=== PATIENT | female | born 1975 | race Caucasian/White ===

== ENCOUNTER 2020-09-24 21:37 | Emergency (ER) | payer MEDICAID, OTHER ==
[~2020-09-24] VITALS: Ht 167.6 cm; Wt 64.9 kg
[~2020-09-24 21:37] MED LIST: birth control pills
[2020-09-24 21:46] VITALS: BP_SYST 142
--- NOTE | 2020-09-24 22:00 | NUR ---
Patient to ER bed 4 to gown for evaluation. Side rails up. Report given to Gustabo WAGNER.
--- NOTE | 2020-09-24 22:15 | NUR ---
ER at bedside examining patient.
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
--- NOTE | 2020-09-24 22:34 | NUR ---
law enforcement at bedside
--- NOTE | 2020-09-24 22:36 | NUR ---
report number [id number]
[2020-09-24] MEDS ORDERED: AMOXICILLIN/CLAVULANATE POTASSIUM 875 MG TABLET PO ONE (22:45)
[2020-09-24] MEDS ORDERED: DIPH-TET-PERTUS Vaccine 0.5 ML VIAL (ADACEL) I.M. ONE (22:45)
[2020-09-24] MEDS ORDERED: LIDOCAINE 1% 10 MG/ML, 20 ML MDV INJ ONE (22:45)
--- NOTE | 2020-09-24 22:52 | NUR ---
Patient transported to radiology via wheelchair, accompanied by tech.
--- NOTE | 2020-09-24 23:45 | NUR ---
doctor banks at bedside performing suture repair on left side of lip.
[2020-09-25] MEDS ORDERED: IBUP-1970 PO (00:47)
[2020-09-25 00:52] VITALS: BP_SYST 140
--- NOTE | 2020-09-25 00:53 | NUR ---
Patient given written and verbal discharge instructions and verbalizes understanding. ER MD discussed with patient the results and treatment provided. Patient in stable condition. ID arm band removed. Rx of ibuprofen given. Patient educated on pain management and to follow up with PMD. Pain Scale 2/10. Opportunity for questions provided and answered. Medication side effect fact sheet provided.
== END 2020-09-25 00:53 | disposition home or self-care (01) ==
LOC: SED 21:37
DX: S01.511A Laceration without foreign body of lip, initial encounter (principal); Z79.899 Other long term (current) drug therapy; Y04.0XXA Assault by unarmed brawl or fight, initial encounter; Y93.89 Activity, other specified; Y92.89 Other specified places as the place of occurrence of the external cause; Y99.8 Other external cause status
CPT/HCPCS: 70486-TC; 90715; 99284

== ENCOUNTER 2023-07-09 19:21 | Emergency (ER) | payer SELFPAY ==
[~2023-07-09] VITALS: Ht 167.6 cm; Wt 70.3 kg
[~2023-07-09 19:21] MED LIST changes: +IBUP-1970 PO
[2023-07-09 19:44] VITALS: BP_SYST 151; PULSE 84; RESP 22; TEMP 98.6; O2SAT 97
[2023-07-09] MEDS ORDERED: CLIN-142 PO (20:47)
[2023-07-09] MEDS ORDERED: HYDR-3917 PO (20:47)
[2023-07-09] MEDS ORDERED: IBUP-1969 PO (20:47)
== END 2023-07-09 21:03 | disposition home or self-care (01) ==
LOC: SED 19:21
DX: K04.7 Periapical abscess without sinus (principal); Z79.899 Other long term (current) drug therapy
CPT/HCPCS: 99283

== ENCOUNTER 2023-10-04 15:39 | Emergency (ER) | payer BC ==
[~2023-10-04] VITALS: Ht 167.6 cm; Wt 59.0 kg
[~2023-10-04 15:39] MED LIST changes: +CLIN-142 PO; +HYDR-3917 PO; +IBUP-1969 PO
[2023-10-04 15:59] VITALS: BP_SYST 122; PULSE 112; RESP 18; TEMP 98.3; O2SAT 98
[2023-10-04 16:43] LABS: BILIRUBIN,URINE NEGATIVE (NEGATIVE); BLOOD, URINE 2+ (NEGATIVE); CLARITY/URINE CLEAR (CLEAR); COLOR,URINE YELLOW (YELLOW); GLUCOSE,URINE NEGATIVE (NEGATIVE); KETONES,URINE NEGATIVE (NEGATIVE); LEUKOCYTE ESTERASE ,URINE 3+ (NEGATIVE); NITRITE, URINE NEGATIVE (NEGATIVE); PROTEIN URINE NEGATIVE (NEGATIVE); UROBILINOGEN,URINE 0.2 (0.2-1.0)
[2023-10-04 16:59] LABS: RBC,URINE >100 /HPF (0-3); WBC,URINE >100 /HPF (0-3)
[2023-10-04 17:00] LABS: BACTERIA,URINE MODERATE /HPF (None Seen)
[2023-10-04 18:28] LABS: BASOPHILS % (AUTO) 0.3 % (0.0-2.0); EOSINOPHILS # (AUTO) 0.1 K/uL (0.0-0.4); EOSINOPHILS % (AUTO) 1.3 % (0.0-4.0); HEMATOCRIT 40.3 % (36-48); HEMOGLOBIN 13.7 g/dL (12.0-16.0); LYMPHOCYTES # (AUTO) 0.4 K/uL (1.0-5.5); MEAN CORPUSCULAR HEMOGLOBIN 30 pg (27-31); MEAN CORPUSCULAR HGB CONC 34 % (32-36); MEAN CORPUSCULAR VOLUME 89 fL (79.0-98.0); MONOCYTES # (AUTO) 0.2 K/uL (0.0-1.0); NEUTROPHILS # (AUTO) 8.4 K/uL (1.8-7.7); NEUTROPHILS % (AUTO) 92.4 % (40.0-70.0); PLATELET COUNT (AUTO) 317 K/uL (130-430); RED BLOOD CELL COUNT(AUTO) 4.55 MIL/uL (4.2-6.2); RED CELL DISTRIBUTION WIDTH 12.5 % (9.0-15.0); WHITE BLOOD COUNT (AUTO) 9.1 K/uL (4.8-10.8)
[2023-10-04] MEDS ORDERED: NITR-85 PO (18:34)
[2023-10-04] MEDS ORDERED: ACET-2634 PO (18:34)
[2023-10-04] MEDS: cefTRIAXone 1 GM in LIDOCAINE 1%, 20 ML MDV 2.1 ML IM ONE (18:58)
[2023-10-04 19:07] VITALS: BP_SYST 122; PULSE 112; RESP 18; TEMP 98.3; O2SAT 98
== END 2023-10-04 19:08 | disposition home or self-care (01) ==
LOC: SED 15:39
DX: N39.0 Urinary tract infection, site not specified (principal); R35.0 Frequency of micturition
CPT/HCPCS: 99283; 81001; 85025; 87040; 87086; 36415; 96372; 81000; 81015; J0696; 87186; J2001

== ENCOUNTER 2023-10-11 10:19 | Emergency (ER) | payer BC ==
[~2023-10-11] VITALS: Ht 167.6 cm; Wt 65.8 kg
[~2023-10-11 10:19] MED LIST changes: +ACET-2634 PO; +NITR-85 PO
[2023-10-11 10:20] VITALS: BP_SYST 105; PULSE 97; RESP 18; TEMP 97.7; O2SAT 97
[2023-10-11] MEDS: DEXAMETHASONE SOD PHOSPHATE 10 MG/ML VIAL IM ONE (10:58)
[2023-10-11 11:01] LABS: BASOPHILS % (AUTO) 0.7 % (0.0-2.0); EOSINOPHILS % (AUTO) 1.5 % (0.0-4.0); HEMATOCRIT 38.9 % (36-48); HEMOGLOBIN 13.3 g/dL (12.0-16.0); LYMPHOCYTES # (AUTO) 0.8 K/uL (1.0-5.5); LYMPHOCYTES % (AUTO) 37.8 % (20.5-51.5); MEAN CORPUSCULAR HEMOGLOBIN 30 pg (27-31); MEAN CORPUSCULAR HGB CONC 34 % (32-36); MEAN CORPUSCULAR VOLUME 86 fL (79.0-98.0); MONOCYTES # (AUTO) 0.3 K/uL (0.0-1.0); MONOCYTES % (AUTO) 15.5 % (1.7-9.3); NEUTROPHILS % (AUTO) 44.5 % (40.0-70.0); PLATELET COUNT (AUTO) 113 K/uL (130-430); RED CELL DISTRIBUTION WIDTH 12.7 % (9.0-15.0); WHITE BLOOD COUNT (AUTO) 2.2 K/uL (4.8-10.8)
[2023-10-11 11:13] LABS: CALCIUM 8.6 mg/dL (8.4-11.0); CREATININE 0.83 mg/dL (0.55-1.30); POTASSIUM 3.7 mmol/L (3.5-5.1)
[2023-10-11 11:21] LABS: BILIRUBIN,URINE NEGATIVE (NEGATIVE); BLOOD, URINE 3+ (NEGATIVE); COLOR,URINE YELLOW (YELLOW); GLUCOSE,URINE NEGATIVE (NEGATIVE); KETONES,URINE NEGATIVE (NEGATIVE); LEUKOCYTE ESTERASE ,URINE NEGATIVE (NEGATIVE); NITRITE, URINE NEGATIVE (NEGATIVE); PROTEIN URINE 2+ (NEGATIVE)
[2023-10-11 11:23] LABS: CLARITY/URINE SLIGHTLY HAZY (CLEAR)
[2023-10-11 11:34] LABS: BACTERIA,URINE FEW /HPF (None Seen); WBC,URINE 0-3 /HPF (0-3)
[2023-10-11] MEDS ORDERED: METH-776 PO (12:01)
[2023-10-11] MEDS ORDERED: FAMO40TA71 PO (12:01)
[2023-10-11] MEDS ORDERED: FEXO180T94 PO (12:01)
[2023-10-11 12:18] VITALS: BP_SYST 101; PULSE 78; RESP 20; TEMP 97.7; O2SAT 98
== END 2023-10-11 12:22 | disposition home or self-care (01) ==
LOC: SED 10:19
DX: R21 Rash and other nonspecific skin eruption (principal); T37.8X5A Adverse effect of other specified systemic anti-infectives and antiparasitics, initial encounter; R50.9 Fever, unspecified; Z98.890 Other specified postprocedural states; Z79.899 Other long term (current) drug therapy; Z79.2 Long term (current) use of antibiotics; Y92.89 Other specified places as the place of occurrence of the external cause
CPT/HCPCS: 99283; 80048; 81001; 85025; 36415; 81025; 96372; J1100; 81000; 81015